=== PATIENT | male | born 1945 | race Caucasian/White ===

== ENCOUNTER 2016-07-18 06:48 | Day surgery (SDC) | payer MEDICARE, BC ==
[~2016-07-18] VITALS: Ht 170.2 cm; Wt 93.5 kg
[2016-07-18] VITALS (24 sets, daily range): BP systolic 94–138; BP diastolic 54–87; PULSE 60–77; TEMP 98–98.2
[2016-07-18] MEDS ORDERED: VENTOLIN0.09 MG IH (07:20)
[2016-07-18] MEDS ORDERED: LIPITOR 80MG80 MG PO (07:22)
[2016-07-18] MEDS ORDERED: GLUCOPHAGE1000 MG PO (07:22)
[2016-07-18] MEDS ORDERED: COZAAR100 MG PO (07:23)
[2016-07-18] MEDS ORDERED: TOPROL XL 25MG25 MG PO (07:23)
[2016-07-18] MEDS ORDERED: CEPHALEXIN500 M1 PO (07:24)
[2016-07-18] MEDS ORDERED: IMDUR 60MG60 MG/TAB PO (07:25)
[2016-07-18] MEDS ORDERED: VOLTAREN GEL 1%1 TU TP (07:26)
[2016-07-18] MEDS ORDERED: NITROSTAT0.4 MG/TAB SL (07:26)
[2016-07-18] MEDS ORDERED: ASPIRIN E.C. 8181 MG PO (07:27)
[2016-07-18] MEDS ORDERED: SPIRIVA RESPIMAT4 GM IH (07:27)
[2016-07-18] MEDS ORDERED: PREVACID 30MG30 M1 PO (07:27)
[2016-08-06] MEDS ORDERED: MASON NATURAL1200 MG PO (12:41)
[2016-08-06] MEDS ORDERED: PRESERVISION1 SGL PO (12:41)
== END 2016-07-18 15:00 | disposition home or self-care (01) ==
LOC: SDCO 06:48 → COL.RAD 08:30 → EDSTATUS 08:30 → COL.RAD 10:00 → SDCO 15:00
DX: C34.12 Malignant neoplasm of upper lobe, left bronchus or lung (principal); F17.210 Nicotine dependence, cigarettes, uncomplicated; Z85.828 Personal history of other malignant neoplasm of skin; J44.9 Chronic obstructive pulmonary disease, unspecified; I42.0 Dilated cardiomyopathy; I51.9 Heart disease, unspecified
CPT/HCPCS: J2704; J7030

== ENCOUNTER → 2016-08-06 | Outpatient (CLI) | payer MEDICARE, BC ==
[~2016-08-06] VITALS: Ht 170.2 cm; Wt 93.8 kg
[~2016-08-06] MED LIST: ASPIRIN E.C. 8181 MG PO; CEPHALEXIN500 M1 PO; COZAAR100 MG PO; GLUCOPHAGE1000 MG PO; IMDUR 60MG60 MG/TAB PO; LIPITOR 80MG80 MG PO; MASON NATURAL1200 MG PO; NITROSTAT0.4 MG/TAB SL; PRESERVISION1 SGL PO; PREVACID 30MG30 M1 PO; SPIRIVA RESPIMAT4 GM IH; TOPROL XL 25MG25 MG PO; VENTOLIN0.09 MG IH; VOLTAREN GEL 1%1 TU TP
[2016-08-06 12:42] VITALS: BP 138/81; PULSE 65
[2016-08-06 14:30] VITALS: BP 138/89; PULSE 61
== END ==
LOC: COL.RAD 12:23
DX: C82.05 Follicular lymphoma grade I, lymph nodes of inguinal region and lower limb (principal); C34.12 Malignant neoplasm of upper lobe, left bronchus or lung; I10 Essential (primary) hypertension; J44.9 Chronic obstructive pulmonary disease, unspecified
CPT/HCPCS: 13756

== ENCOUNTER 2017-03-13 06:51 | Day surgery (SDC) | payer MEDICARE, BC ==
[~2017-03-13] VITALS: Ht 170.2 cm; Wt 93.1 kg
[2017-03-13] VITALS (7 sets, daily range): BP systolic 85–119; BP diastolic 41–74; PULSE 55–76; TEMP 98.4–98.7
[2017-03-13] MEDS ORDERED: IMDUR 60MG60 MG/TAB PO (07:45)
[2017-03-13] MEDS ORDERED: CEPHALEXIN500 M1 PO (07:54)
[2017-03-13] MEDS ORDERED: IMDUR 30MG30 MG/TAB PO (08:14)
[2017-03-13] MEDS ORDERED: PREVACID 30MG30 M1 PO (08:15)
[2017-03-13] MEDS ORDERED: ASPIRIN 81M81 MG/TA2 PO (08:15)
[2017-03-13] MEDS ORDERED: COZAAR100 MG PO (08:16)
[2017-03-13] MEDS ORDERED: LIPITOR20 MG PO (08:16)
[2017-03-13] MEDS ORDERED: NITROSTAT0.4 MG/TAB SL (08:17)
[2017-03-13] MEDS ORDERED: GLUCOPHAGE500 MG/TAB PO (08:17)
[2017-03-13] MEDS ORDERED: RT SPIRIVA18 MCG IH (08:18)
[2017-03-13] MEDS ORDERED: VENTOLIN0.09 MG IH (08:18)
[2017-03-13] MEDS ORDERED: SPIRIVA RE2.5 MCG/Ac IH (09:35)
[2017-03-13] MEDS ORDERED: TOPROL XL 25MG25 MG PO (09:37)
[2017-03-13] MEDS ORDERED: NORCO 325 MG-7.1 TAB PO (09:37)
== END 2017-03-13 12:05 | disposition home or self-care (01) ==
LOC: SDCO 06:51
DX: C34.92 Malignant neoplasm of unspecified part of left bronchus or lung (principal); C79.51 Secondary malignant neoplasm of bone; E11.9 Type 2 diabetes mellitus without complications; G47.33 Obstructive sleep apnea (adult) (pediatric); I10 Essential (primary) hypertension; I25.10 Atherosclerotic heart disease of native coronary artery without angina pectoris; I25.2 Old myocardial infarction; J44.9 Chronic obstructive pulmonary disease, unspecified; E78.00 Pure hypercholesterolemia, unspecified; F17.210 Nicotine dependence, cigarettes, uncomplicated; G51.0 Bell's palsy; Z79.84 Long term (current) use of oral hypoglycemic drugs
CPT/HCPCS: C1788; J0690; J1644; J2704; J3010; J7030